=== PATIENT | male | born 1955 | race Two or more races ===

== ENCOUNTER 2023-03-07 21:03 | Emergency (ER) | payer OTHER ==
[~2023-03-07] VITALS: Ht 160 cm; Wt 117.9 kg
[~2023-03-07 21:03] MED LIST: TENORMIN25 MG PO
[2023-03-08 01:30] LABS: HEMATOCRIT 43.8 % (39.0-48.0); HEMOGLOBIN 15.1 g/dL (13-16.00); MEAN CELL VOLUME 94.8 fL (80.0-100.00); MEAN CORPUSCULAR HEMOGLOBIN 32.7 pg (27.00-32.0); MEAN CORPUSCULAR HGB CONC 34.5 g/dl (32.0-36.0); RED BLOOD COUNT 4.62 M/uL (4.00-6.00); RED CELL DISTRIBUTION WIDTH 13.1 % (11.5-14.5)
[2023-03-08 01:30] LABS: URINE APPEARANCE Clear; URINE BILIRRUBIN Negative (NEGATIVE); URINE BLOOD Negative; URINE COLOR Yellow; URINE LEUKOCYTE Negative; URINE NITRATE Negative; URINE PROTEIN Negative (NEGATIVE)
[2023-03-08 01:32] LABS: PLATELET COUNT 130 K/uL (150-450)
[2023-03-08 01:33] LABS: URINE BACTERIA 6.2 uL (0.0-1933); URINE EPITHELIAL CELLS 2.7 uL (0.0-38.8); URINE WBC 1.8 uL (0.0-23.2)
[2023-03-08 01:35] LABS: URINE GLUCOSE 500 MG/DL (NEGATIVE); URINE RBC 1.2 uL (0.0-20.8)
[2023-03-08 02:00] LABS: ALBUMIN 3.4 gm/dL (3.4-5.0); CALCIUM 8.8 mg/dL (8.5-10.1); CREATININE SERUM 0.78 mg/dL (0.70-1.30); GFR 99.58; GLOBULINA 3.4 G/DL (2.4-3.5); POTASSIUM 3.44 mEq/L (3.5-5.1); TOTAL PROTEIN 6.8 gm/dL (6.4-8.2)
== END 2023-03-08 03:13 | disposition home or self-care (01) ==
LOC: ER 21:03
DX: K59.01 Slow transit constipation (principal); R73.03 Prediabetes; Z20.822 Contact with and (suspected) exposure to COVID-19

== ENCOUNTER 2023-03-09 10:09 | Outpatient (CLI) | payer OTHER | END 2023-03-09 10:13 | disposition home or self-care (01) | LOC: RAD 10:09 | PROVIDERS: ATTEND General Practice | DX: J44.9 Chronic obstructive pulmonary disease, unspecified (principal) ==

== ENCOUNTER 2023-03-21 10:59 | Outpatient (CLI) | payer OTHER | END 2023-03-21 11:03 | disposition home or self-care (01) | LOC: RAD 10:59 | PROVIDERS: ATTEND General Practice | DX: M25.50 Pain in unspecified joint (principal); M54.16 Radiculopathy, lumbar region ==

== ENCOUNTER 2023-03-24 09:21 | Outpatient (CLI) | payer OTHER | END 2023-03-24 09:31 | disposition home or self-care (01) | LOC: MRI 09:21 | PROVIDERS: ATTEND General Practice | DX: R41.3 Other amnesia (principal); R41.2 Retrograde amnesia; R51.0 Headache with orthostatic component, not elsewhere classified | CPT/HCPCS: 70551 ==